=== PATIENT | female | born 1950 | race Caucasian/White ===

== ENCOUNTER 2022-12-05 09:09 | Outpatient (CLI) | payer MEDICARE, SELFPAY ==
--- NOTE | ~2022-12-05 | PE_ITS ---
EXAMINATION: PET skull to mid thigh DATE: 12/05/2022 11:30 INDICATION: Right breast cancer. TECHNIQUE: Blood glucose level was 106 mg/dL. 9.378 mCi of 18-fluorodeoxyglucose (18-FDG) was adminis tered i.v. Low dose computed tomography (CT) images were acquired from the base of the brain to the p roximal thighs for attenuation correction and anatomic localization. Automated exposure control was e mployed. Dose-length product (DLP) was 973 mGy-cm. Positron emission tomography (PET) images were acq uired in the same distribution. COMPARISON: None FINDINGS: Head/neck: There is a left parietal ventriculoperitoneal shunt. There is a 1.5 cm mass in the right p arotid gland with maximum SUV of 20.6. There is a 13 mm sialolith in the duct for right submandibular gland. There are no pathologically enlarged lymph nodes. There are changes of left posterior craniot nani. Chest: There is a 7.6 x 6.9 cm mass in the upper inner right breast with maximum SUV of 28.5. There i s no pneumonia or pleural effusion. The heart size is normal. There are coronary artery calcification s. No pericardial effusion. There are no pathologically enlarged lymph nodes. There is a calcified tr act from an old catheter in the right neck and subcutaneous right chest. Abdomen/pelvis/proximal thighs: There is diffuse hepatic steatosis. The gallbladder is absent. The sp marietta, pancreas, adrenal glands, and kidneys are normal. There is a filter in the inferior vena cava. There is a supraumbilical ventral hernia containing a wall of nonobstructed transverse colon. There i s diverticulosis of the colon without evidence of diverticulitis. There are no dilated loops of bowel . There are no pathologically enlarged lymph nodes. There is no free intraperitoneal fluid. There is no osseous malignancy. IMPRESSION: 1. Right breast mass with increased activity, consistent with primary malignancy. No specific evidenc e of metastatic disease. 2. Right parotid mass with increased activity. The differential diagnosis includes benign mixed tumor , Warthin tumor, and less likely primary malignancy or juve metastatic disease. Ultrasound-guided fi ne-needle aspiration is recommended. Reviewed, dictated and finalized at location A. IMPRESSION: 1. Right breast mass with increased activity, consistent with primary malignanc y. No specific evidence of metastatic disease. 2. Right parotid mass with increased activity. The differential diagnosis inclu rodrigo benign mixed tumor, Warthin tumor, and less likely primary malignancy or no galen metastatic disease. Ultrasound-guided fine-needle aspiration is recommended .
[2022-12-05 09:49] LABS: Glucose Point of Care 106 mg/dl (65-105)
== END 2022-12-05 09:10 | disposition home or self-care (01) ==
PROVIDERS: PCP Internal Medicine; Visit Provider Surgery
DX: C50.811 Malignant neoplasm of overlapping sites of right female breast (principal); K11.8 Other diseases of salivary glands
CPT/HCPCS: 78815; A9552

== ENCOUNTER 2024-03-10 12:25 | Inpatient (IN) | payer MEDICARE, SELFPAY ==
[2024-03-10] VITALS (23 sets, daily range): BP systolic 92–158; BP diastolic 49–145; PULSE 65–97; RESP 16–28; TEMP 36.5–36.6; O2SAT 89–98; BMI 38.5
--- NOTE | ~2024-03-10 | CT_ITS ---
CT brain wo con Ordering provider: Sherita Lino PA-C History: 74 years Female with . fall, head trauma . Comparison: None. Technique: CT of the head without contrast. Radiation reduction technique utilized. DLP is 681mGy-cm. FINDINGS: BRAIN PARENCHYMA AND CSF SPACES: Bilateral frontoparietal subdural hematoma with thickness of 4 mm on the left and 4 mm on the right. Supratentorial hematoma is also noted. Shunted tube is seen in the l eft occipital area with the tip in the area of the right foramen magnum. No midline shift, or mass ef fect.. The brain parenchyma and CSF spaces are otherwise normal. VISUALIZED PARANASAL SINUSES: Well aerated. MASTOIDS: Well aerated. BONES: Status post craniectomy in the left occipital and right frontal bone. The bones appear intact. SOFT TISSUES: Visualized nasopharynx is normal. Superficial soft tissues are normal. IMPRESSION: Bilateral frontoparietal subdural hematomas with a hematoma in the area of the tentorium. Sherita Lino PA-C was notified with the result of the patient at 10: 23 PM on March 10, 2024. Reviewed, dictated and finalized at location A. IMPRESSION: Bilateral frontoparietal subdural hematomas with a hematoma in the area of the tentorium. Sherita Lino PA-C was notified with the result of the patient at 10: 23 P M on March 10, 2024.
--- NOTE | ~2024-03-10 | CT_ITS ---
Non-contrast Head CT History: Altered mental status COMPARISON: 03/10/2024 Technique: Axial non-contrast imaging of the brain was performed. Dose reduction technique was used on this scan by utilizing automated exposure control and iterative reconstruction technique. The dose -length product (DLP) was 756.67 mGy-cm. Findings: There are small bilateral subacute subdural hematomas along the cerebral convexities, essen tially stable from prior exam.. Left ventriculostomy shunt catheter remains in place. Brain parenchym a appears normal. The ventricles and subarachnoid spaces are normal in size. Prior left occipital cr aniectomy.. The visualized paranasal sinuses and mastoid air cells are clear. Impression: Small bilateral cerebral convexity subacute subdural hematomas are stable from prior exam. Prior occipital craniectomy and ventriculostomy shunt catheter. Reviewed, dictated and finalized at [facility]. Impression: Small bilateral cerebral convexity subacute subdural hematomas are stable from prior exam. Prior occipital craniectomy and ventriculostomy shunt catheter.
--- NOTE | ~2024-03-10 | XR_ITS ---
XR chest 1V portable Ordering provider: Jackson Vázquez MD History: 74 years Female with . SOA . Comparison: None. FINDINGS: MEDIASTINUM: The cardiac silhouette is not enlarged. Congestive jane. LUNGS: No pneumothorax. Opacification the left lung bases suggestive of atelectasis versus pneumonia with possible pleural effusion. Minimal atelectasis versus pneumonia in the right lung base is also n oted. OTHER: No free air under the diaphragm. Right central line is projected with the tip overlying superior vena cava. Wires are projected over t he chest and abdomen. Unusual catheter Is projected over the chest and abdomen in the mid area clinical correlation advised. IMPRESSION: Pneumonia in the left lung base with possible effusion. Minimal pneumonia in the right lung base. Reviewed, dictated and finalized at location A.
--- NOTE | ~2024-03-10 | CT_ITS ---
CTA chest PE protocol Ordering provider: Jackson Vázquez MD History: 74 years Female with . SOA . Comparison: None. Technique: CT angiogram chest was performed following timed intravenous injection of contrast. Thin s lice axial images and reformatted coronal images were obtained. Three dimensional reformatted images of the chest were also obtained using a [employer] workstation. . Automated exposure control and iterati ve reconstruction technique were employed. The dose-length product was 822.03 mGy-cm. 100 MLO Omnipaq ue 350 was given IV. Findings: PULMONARY ARTERIES: No pulmonary embolus. VISUALIZED THORACIC INLET: Normal. MEDIASTINUM: Aorta/coronary arteries: Mild atheromatous disease. Heart/other: The heart is mildly enlarged. Lymph nodes: No mediastinal or hilar adenopathy. Narrowing of the trachea and main bronchi suggestive of tracheomalacia and bronchomalacia. Calcified vessel is seen in the anterior chest wall are may be a catheter clinical correlation advise d. LUNGS: Dependent atelectatic changes. Atelectasis in the middle lobe and lingula. No pulmonary nodules or ma sses. No infiltrates or effusions. No pneumothorax. VISUALIZED UPPER ABDOMEN: Slightly prominent pancreatic duct. Slight narrowing at the origin of the c eliac artery. Otherwise, the visualized upper abdomen is normal. MUSCULOSKELETAL: Soft tissues: The superficial soft tissues are normal. Bones: Age appropriate degenerative changes of the spine. IMPRESSION: 1. No pulmonary embolism. 2. Tracheobronchial malacia. 3. Dependent atelectatic changes with atelectasis in the middle lobe and lingula. 4. Cardiomegaly. 5. Slightly prominent pancreatic duct. Follow-up advised. Reviewed, dictated and finalized at location A. IMPRESSION: 1. No pulmonary embolism. 2. Tracheobronchial malacia. 3. Dependent atelectatic changes with atelectasis in the middle lobe and lingu la. 4. Cardiomegaly. 5. Slightly prominent pancreatic duct. Follow-up advised.
--- NOTE | ~2024-03-10 | US_ITS ---
BILATERAL LOWER EXTREMITY VENOUS ULTRASOUND Ordering provider: Sherita Lino History: . Bilateral lower extremity edema, left greater than . Comparison: None. FINDINGS: RIGHT LOWER EXTREMITY VEINS: --COMMON FEMORAL: Patent and free of thrombus. Normal compressibility, phasic flow and augmentation. --PROXIMAL SUPERFICIAL FEMORAL: Patent and free of thrombus. Normal compressibility, phasic flow and augmentation. --DISTAL SUPERFICIAL FEMORAL: Patent and free of thrombus. Normal compressibility, phasic flow and au gmentation. --POPLITEAL: Patent and free of thrombus. Normal compressibility, phasic flow and augmentation. --POSTERIOR TIBIAL: Not evaluated. LEFT LOWER EXTREMITY VEINS: --COMMON FEMORAL: Patent and free of thrombus. Normal compressibility, phasic flow and augmentation. --PROXIMAL SUPERFICIAL FEMORAL: Patent and free of thrombus. Normal compressibility, phasic flow and augmentation. --DISTAL SUPERFICIAL FEMORAL: Patent and free of thrombus. Normal compressibility, phasic flow and au gmentation. --POPLITEAL: Patent and free of thrombus. Normal compressibility, phasic flow and augmentation. --POSTERIOR TIBIAL: Patent and free of thrombus. Normal compressibility, phasic flow and augmentation . IMPRESSION: The right calf veins are not visualized otherwise, Negative bilateral lower extremity venous US. No d eep vein thrombosis. Reviewed, dictated and finalized at location A. IMPRESSION: The right calf veins are not visualized otherwise, Negative bilateral lower ext remity venous US. No deep vein thrombosis.
--- NOTE | 2024-03-10 12:47 | ECG_ITS ---
Test Date: 2024-03-10 12:49:06 Measurements Intervals [place] Rate: 87 P: 39 [place]: 152 QRS: 26 QRSD: 125 T: 87 QT: 389 QTc: 470 Interpretive Statements SINUS RHYTHM RIGHT BUNDLE BRANCH BLOCK MINIMAL Q WAVES- INFERIOR LEADS ST-T WAVE ABNORMALITY IN ANTEROLATERAL LEADS- CONSIDER ISCHEMIA BASELINE ARTIFACT- I, II, III, AVR, AVF, V1 ABNORMAL ECG No previous ECG available for comparison Electronically Signed On 03-10-2024 17:12:45 CDT by Wes Carter D.O.
[2024-03-10 13:10] LABS: Basophils Absolute Auto 0.1 K/mm3 (0.0-0.1); Basophils Percent Auto 0.7 % (0.2-1.2); Eosinophils Absolute Auto 0.1 K/mm3 (0-0.3); Eosinophils Percent Auto 1.9 % (0-4.4); Hematocrit 54.3 % (37.0-47.0); Immature Granulocyte Absolute 0.01 K/mm3 (0.00-0.031); Immature Granulocyte Percent A 0.1 % (0-0.5); Lymphocytes Absolute Auto 1.59 K/mm3 (0.9-3.2); Lymphocytes Percent Auto 22.8 % (18.3-44.2); Mean Corpuscular HGB Conc 31.3 g/dl (32-36); Mean Corpuscular Hemoglobin 33.6 pg (26-34); Mean Corpuscular Volume 107.3 fl (80-100); Mean Platelet Volume 10.8 fl (7.4-10.4); Monocytes Absolute Auto 0.8 K/mm3 (0.1-0.6); Monocytes Percent Auto 11.8 % (2.6-8.5); Neutrophils Absolute Auto 4.4 K/mm3 (1.3-6.7); Neutrophils Percent Auto 62.7 % (45.5-73.1); Platelet Count Result 193 k/mm3 (150-375); Red Blood Count 5.06 M/mm3 (4.2-5.4); Red Cell Distribution Width 14.7 % (11.5-14.5)
[2024-03-10 13:24] LABS: Alveolar/Arterial O2 Gradient 111.4 mmHg; Base Excess ABG 6.1 mEq/l (+/-2.0); Carboxyhemoglobin 1.4 % THb (0-2.0); Fractional Inspired Oxygen 36 %; HCO3 ABG 36.3 mEq/l (22.0-26.0); Methemoglobin ABG 0.2 %THb (0-1.5); Oxygen Content ABG 20.3 %vol (16.0-22.0); PO2 ABG 56.4 mmHg (80.0-100.0); PO2 FiO2 Ratio Arterial Blood 1.57 %; Reduced Hemoglobin 13.6 %THb (0-5.0); Total Hemoglobin 17.1 g/dL (12.0-18.0)
[2024-03-10 13:29] LABS: PCO2 ABG 76.6 mmHg (35.0-45.0); pH ABG 7.293 (7.350-7.450)
[2024-03-10 13:30] LABS: Oxygen Saturation ABG 84.8 % (95.0-100.0)
[2024-03-10 13:31] LABS: Device NASAL CANNULA; Oxyhemoglobin 84.8 % THb (90.0-100.0); Site Drawn RIGHT RADIAL
[2024-03-10 13:43] LABS: Anisocytosis 1+; Macrocytosis 1+ (NORMAL); Platelet Estimate Adequate (Adequate); Schistocytes None Seen
[2024-03-10 13:53] LABS: Alanine Aminotransferase 34 U/L (6-35); Albumin Level 4.1 g/dL (3.5-5.1); Alkaline Phosphatase 67 U/L (38-126); Anion Gap 6 mmol/L (4-12); Aspartate Amino Transferase 38 U/L (14-36); Bilirubin,Total 0.9 mg/dL (0.2-1.3); Blood Urea Nitrogen 13 mg/dL (7-17); Calcium 9.2 mg/dL (8.4-10.2); Carbon Dioxide 38 mmol/L (22-30); Chloride 99 mmol/L (98-107); Estimated CRCL calculation 60 ml/min; Estimated Glomerular Filt Rate > 60; Glucose 103 mg/dL (65-110); Potassium 3.9 mmol/L (3.4-5.0); Sodium 143 mmol/L (137-145)
[2024-03-10 14:41] LABS: NT Pro B Type Natriuretic Pept 968 pg/mL (19.9-100)
--- NOTE | 2024-03-10 15:07 | PC.NURSE ---
Patient repositioned in bed and warm blanket given
[2024-03-10 15:42] LABS: Alveolar/Arterial O2 Gradient 164.1 mmHg; Base Excess ABG 5.2 mEq/l (+/-2.0); Carboxyhemoglobin 1.5 % THb (0-2.0); Fractional Inspired Oxygen 40 %; Methemoglobin ABG 0.3 %THb (0-1.5); Oxygen Content ABG 19.4 %vol (16.0-22.0); PO2 ABG 51.1 mmHg (80.0-100.0); PO2 FiO2 Ratio Arterial Blood 1.28 %; Reduced Hemoglobin 14.5 %THb (0-5.0); Total Hemoglobin 16.5 g/dL (12.0-18.0); pH ABG 7.352 (7.350-7.450)
[2024-03-10 15:47] LABS: Oxygen Saturation ABG 83.6 % (95.0-100.0); PCO2 ABG 60.9 mmHg (35.0-45.0)
[2024-03-10 15:48] LABS: Device BIPAP; Oxyhemoglobin 83.7 % THb (90.0-100.0); Site Drawn LEFT RADIAL
[2024-03-10 15:56] LABS: Expiratory Pressure 8 cmH2O; Inspiratory Pressure 16 cmH2O
[2024-03-10] MEDS: ALBUTEROL SULFATE NEB 2.5 MG/3 ML INH 10 MG INHALATION (15:57)
[2024-03-10] MEDS: IPRATROPIUM BR 0.02% INH SOLN 0.5 MG/2.5 ML VIAL 1 MG INHALATION (15:57)
--- NOTE | 2024-03-10 16:09 | ED.SOB ---
HPI - SOB/Dyspnea General Chief Complaint: Shortness of Breath/Dyspnea Stated Complaint: Fall Time Seen by Provider: 03/10/24 12:54 History of Present Illness HPI Narrative: Patient is a 74-year-old female who presents ER for evaluation for left starkey because she tripped over her dog while using a walker yesterday and developed a bruise. Upon arrival she is found to be satting 74% on room air. She was taken to her room placed on non-rebreather. Patient is awake alert and oriented x2. She cannot give me any additional history of her illness. Denies any fevers or chills or cough. She has no chest pain. She does have bruising to the left starkey. She has no ever other evidence of injury to her body. Denies head injury. Related Data Allergies Allergy/AdvReac Type Severity Reaction Status Date / Time No Known Allergies Allergy Verified 03/10/24 16:10 Review of Systems Review of Systems: All systems reviewed & are unremarkable except as noted in HPI and below Constitutional: Constitutional: Reports no additional constitutional complaints ENT: Reports system reviewed and no additional complaints, except as documented Cardiovascular: Cardiovascular: Reports no additional cardiovascular complaints Respiratory: Respiratory: Reports no additional respiratory complaints Genitourinary: Genitourinary: Reports no additional female genitourinary complaints [facility] Past Medical History Medical History (Updated 03/10/24 @ 17:31 by Jackson Vázquez MD) Hyperlipidemia Hypothyroidism Exam Narrative: GENERAL: Chronically ill-appearing, obese, and in no acute distress. HEAD: Normocephalic, atraumatic. EYES: PERRL and EOMI. ENT: Mucous membranes moist. CHEST: Clear to auscultation. No respiratory distress. HEART: Regular rate and rhythm. Normal peripheral pulses. ABDOMEN: Soft, nontender, nondistended. EXTREMITIES: Normal range of motion. +2 edema. SKIN: Warm, dry, no rash. NEURO: Alert and oriented x2. Course Course Emergency Course: Patient hypercapnic and placed on BiPAP. Broad-spectrum antibiotics for pneumonia. Accepted by hospitalist service. They requested a cta of the chest. Vital Signs Vital signs: Vital Signs Temperature 97.7 F 03/10/24 12:45 Pulse Rate 82 03/10/24 12:45 Respiratory Rate 18 03/10/24 12:45 Blood Pressure 146/90 H 03/10/24 12:45 Pulse Oximetry 98 03/10/24 12:45 Oxygen Delivery Non-Rebreather Mask 03/10/24 12:45 Oxygen Flow Rate 13 03/10/24 12:45 Temperature 97.7 F 03/10/24 12:45 Pulse Rate 66 03/10/24 16:01 Respiratory Rate 24 H 03/10/24 16:01 Blood Pressure 107/53 L 03/10/24 16:01 Pulse Oximetry 94 03/10/24 16:01 Oxygen Delivery BiPAP 03/10/24 13:40 Oxygen Flow Rate 4 03/10/24 12:59 MDM - SOB/Dyspnea Lab Data 03/10/24 12:55 03/10/24 13:37 Labs: Lab Results 03/10/24 03/10/24 03/10/24 Range/Units 12:55 13:19 13:36 WBC 7.0 (4.5-10.0) K/mm3 RBC 5.06 (4.2-5.4) M/mm3 Hgb 17.0 H (12.0-15.0) g/dL Hct 54.3 H (37.0-47.0) % MCV 107.3 H (80-100) fl MCH 33.6 (26-34) pg MCHC 31.3 L (32-36) g/dl RDW 14.7 H (11.5-14.5) % Plt Count 193 (150-375) k/mm3 MPV 10.8 H (7.4-10.4) fl Immature Gran % (Auto) 0.1 (0-0.5) % Neut % (Auto) 62.7 (45.5-73.1) % Lymph % (Auto) 22.8 (18.3-44.2) % [place] % (Auto) 11.8 H (2.6-8.5) % Eos % (Auto) 1.9 (0-4.4) % Baso % (Auto) 0.7 (0.2-1.2) % Lymph # (Auto) 1.59 (0.9-3.2) K/mm3 [place] # (Auto) 0.8 H (0.1-0.6) K/mm3 Eos # (Auto) 0.1 (0-0.3) K/mm3 Baso # (Auto) 0.1 (0.0-0.1) K/mm3 Abs Immat Gran (auto) 0.01 (0.00-0.031) K/mm3 Absolute Neuts (auto) 4.4 (1.3-6.7) K/mm3 Absolute Nucleated RBC 0.000 (0.0-0.012) K/mm3 Nucleated RBC % 0.0 (0.0-0.2) % Platelet Estimate Adequate (Adequate) Anisocytosis 1+ Macrocytosis 1+ (NORMAL) Schistocytes None seen
--- NOTE | 2024-03-10 16:50 | PC.NURSE ---
Phlebotomy was called at 1648 for second set of blood cultures and lactic blood draw.
--- NOTE | 2024-03-10 17:04 | PC.NURSE ---
Waiting on phlebotomy to come draw second set of blood cultures
--- NOTE | 2024-03-10 17:13 | PC.NURSE ---
Sherita at bedside
--- NOTE | 2024-03-10 18:17 | ADMGEN ---
This patient, Sarah Lazaro, was admitted to IMU Room 211-01. Patient/family oriented to hospital policies and general routines including ID bracelet, bed and alarms, visiting hours, pain management, procedures, bathroom and other care routines, personal items, smoking policy, room service/diet, and visiting hours. Information on how to activate the Rapid Response Team has been discussed. Patient/Family are encouraged to report perceived risks to care and to ask questions if they do not understand what they are told or what they should do.
[2024-03-10 18:25] LABS: Lactic Acid Reflex 0.9 mmol/L (0.7-2.0)
--- NOTE | 2024-03-10 20:39 | PC.NURSE ---
Call placed to Sherita ABDUL regarding pt's LOC. Pt unable to answer orientation questions/follow commands. Pt is drowsy and sleeping. New orders pending per Sherita ABDUL.
--- NOTE | 2024-03-10 20:44 | PC.NURSE ---
Sherita ABDUL with new orders for STAT brain CT and ABGC.
--- NOTE | 2024-03-10 20:44 | PM.IMHP ---
H&P: HPI History of Present Illness Date/Time: 03/10/24 20:45 Chief Complaint: Fall, cough, shortness of breath. Narrative: This is a 74-year-old female with history of right-sided breast cancer, hypothyroidism, hypercholesterolemia, depression, and traumatic brain injury with cognitive impairment who presented to the emergency department via private vehicle accompanied by her [id number] for evaluation of a fall, cough, and shortness of breath. The patient is currently on BiPAP and has difficulty speaking through the mask and thus some of the following history is provided by her [id number], Angeli Hair, who is at bedside, with the patient's permission. The patient lives with her who is her primary pipeline inspector but he was in the hospital several days over the weekend and Angeli Hair came to stay with the patient. The house is filthy, without a working toilet, and is likely not livable and Angeli Hair took her to a local motel to stay. The patient has a good appetite and seemed to have been doing well these past couple of days. Yesterday however she developed a cough and seemed to be short of breath. This morning she fell out of bed and hit her head on the ground but was able to get up with the help of Angeli Hair. Angeli Hair felt she should bring the patient for evaluation given the fall, cough, and shortness of breath. There was no loss of consciousness in the fall and the patient denies sustaining any injuries. She has no complaints at the time my evaluation and denies fever, chills, sweats, headache, sinus congestion, sore throat, vision changes, focal weakness, paresthesias, chest pain, hemoptysis, vomiting, diarrhea, dysuria, and calf pain. In the ED: SpO2 was in the 70s on room air on arrival to triage. She was afebrile with stable blood pressures. ABG showed a pH of 7.293, pCO2 76.6, PO2 56.4 with a reduced hemoglobin of 13 0.6%, and bicarb of 36.3. Labs were significant for WBC count of 7.0, hemoglobin 17.0, hematocrit 54.3%, MCV 107.3, platelet 193, carbon dioxide 38, proBNP 968. Chest x-ray showed cardiomegaly, pneumonia in the left lung base with possible effusion, and minimal pneumonia in the right lung base. Chest CTA was negative for pulmonary embolism but showed cardiomegaly, tracheobronchial malacia, and dependent atelectatic changes with atelectasis in the middle lobe and lingula. EKG showed a sinus rhythm with right bundle-branch block and ST T-wave deviation in the anterolateral leads. She received and albuterol nebulizer and was started on antibiotics for possible pneumonia and she is being admitted in this setting for further treatment. Review of Systems Review of Systems: Review of systems was limited due to the BiPAP mask. She also has cognitive impairment from previous TBI and [id number] states that she has some memory loss and is quite repetitive. [id number] also mentions that the patient was quite dirty when she picked her up and gave her a good shower at which time she noticed significant rashes under the patient's breasts and inguinal creases consistent with yeast. She also notes that the patient's toenails were long and curved into her skin. She has urinary incontinence at baseline. Patient ambulates with a walker. She has had occasional falls. No syncope. [facility] Past Medical History Medical History (Updated 03/10/24 @ 21:05 by Sherita Lino PA-C) Cancer of right breast Hyperlipidemia Hypothyroidism Mild cognitive impairment Traumatic brain injury Surgical History Surgical History (Updated 03/10/24 @ 22:30 by Sherita Lino PA-C) History of craniotomy History of right mastectomy Family History Family History (Updated 03/10/24 @ 20:57 by Sherita Lino PA-C) Other Family history unknown Social History Social History (Updated 03/10/24 @ 20:58 by Sherita Lino PA-C) Social History: Surrogate medical decision maker: Guilherme Lazaro, spouse. Code status: Full code. Smoking status: [place]
[2024-03-10 21:12] LABS: Alveolar/Arterial O2 Gradient 201.5 mmHg; Base Excess ABG 4.8 mEq/l (+/-2.0); Carboxyhemoglobin 1.6 % THb (0-2.0); Fractional Inspired Oxygen 50 %; HCO3 ABG 33.3 mEq/l (22.0-26.0); Oxygen Content ABG 20.6 %vol (16.0-22.0); Oxygen Saturation ABG 94.7 % (95.0-100.0); Oxyhemoglobin 93.9 % THb (90.0-100.0); PO2 ABG 80.9 mmHg (80.0-100.0); PO2 FiO2 Ratio Arterial Blood 1.62 %; Reduced Hemoglobin 4.5 %THb (0-5.0); Total Hemoglobin 15.6 g/dL (12.0-18.0); pH ABG 7.321 (7.350-7.450)
[2024-03-10 21:14] LABS: Device NON-INVASIVE VENT; Modified Allen's Test Pass; PCO2 ABG 65.9 mmHg (35.0-45.0); Site Drawn LEFT RADIAL
[2024-03-10 21:15] LABS: Non-Invasive Expiratory Pressure 8 CMH2O; Non-Invasive Inspiratory Pressure 16 CMH2O; Non-Invasive Vent Rate 24 /MIN
[2024-03-10] MEDS: TOLNAFTATE 1% POWDER 45 GM BTL 1 APPLIC TOPICAL (22:00)
[2024-03-10] MEDS: ACETAMINOPHEN 325 MG TABLET 650 MG PO (22:41)
[2024-03-10] MEDS: AZITHROMYCIN 500 MG/NS 250 ML 500 MG/250 ML BAG 250 MG IVPB (23:54)
[2024-03-11] VITALS (19 sets, daily range): BP systolic 110–119; BP diastolic 45–69; PULSE 55–74; RESP 16–28; TEMP 36.4–36.6; O2SAT 92–96
[2024-03-11 04:57] LABS: Hematocrit 53.7 % (37.0-47.0); Hemoglobin 16.4 g/dL (12.0-15.0); Mean Corpuscular HGB Conc 30.5 g/dl (32-36); Mean Corpuscular Hemoglobin 33.5 pg (26-34); Mean Corpuscular Volume 109.6 fl (80-100); Platelet Count Result 161 k/mm3 (150-375); Red Cell Distribution Width 14.6 % (11.5-14.5); White Blood Count 4.8 K/mm3 (4.5-10.0)
[2024-03-11 05:25] LABS: Alveolar/Arterial O2 Gradient 183.4 mmHg; Base Excess ABG 3.1 mEq/l (+/-2.0); Carboxyhemoglobin 1.2 % THb (0-2.0); Fractional Inspired Oxygen 50 %; HCO3 ABG 32.3 mEq/l (22.0-26.0); Methemoglobin ABG 0.1 %THb (0-1.5); Oxygen Content ABG 21.4 %vol (16.0-22.0); Oxygen Saturation ABG 96.1 % (95.0-100.0); Oxyhemoglobin 95.4 % THb (90.0-100.0); PO2 ABG 94.2 mmHg (80.0-100.0); PO2 FiO2 Ratio Arterial Blood 1.88 %; Reduced Hemoglobin 3.3 %THb (0-5.0); Total Hemoglobin 15.9 g/dL (12.0-18.0)
[2024-03-11 05:29] LABS: pH ABG 7.282 (7.350-7.450)
[2024-03-11 05:30] LABS: Device NON-INVASIVE VENT; Modified Allen's Test Pass; PCO2 ABG 70.1 mmHg (35.0-45.0); Site Drawn RIGHT RADIAL
[2024-03-11 05:31] LABS: Non-Invasive Expiratory Pressure 8 CMH2O; Non-Invasive Inspiratory Pressure 16 CMH2O; Non-Invasive Vent Rate 24 /MIN
[2024-03-11 05:38] LABS: Anion Gap 6 mmol/L (4-12); Blood Urea Nitrogen 13 mg/dL (7-17); Calcium 8.7 mg/dL (8.4-10.2); Carbon Dioxide 37 mmol/L (22-30); Chloride 99 mmol/L (98-107); Estimated CRCL calculation 60 ml/min; Estimated Glomerular Filt Rate > 60; Glucose 90 mg/dL (65-110); Magnesium 2.1 mg/dL (1.6-2.3); Potassium 4.1 mmol/L (3.4-5.0); Sodium 142 mmol/L (137-145)
[2024-03-11] MEDS: LEVOTHYROXINE SODIUM 100 MCG TABLET PO (06:16)
[2024-03-11] MEDS: IPRATROPIUM 0.5 MG/ALBUTEROL SULFATE 2.5 MG AMPUL.NEB 3 ML INHALATION (07:21)
--- NOTE | 2024-03-11 08:00 | PC.NURSE ---
Pt's CO2 increasing on ABG's throughout the night, RN informed in report that pt is in and out of alertness/awareness. Pt has increasing subdermal hematoma per head CTs. RN & RT don't feel comfortable making changes to pt's BiPAP with active brain bleed, not wanting to increase pressure at this time, afraid of increasing ICP. RN to ICU to discuss pt's case with Bottle Booth Attendant. Dr. Moran to pt bedside with RN, RT, digital sales manager. Adjustments made to BiPAP by Dr. Moran. New orders to give 1-hr breathing treatment and to recheck ABG in one hour. Notify Bottle Booth Attendant of repeat ABG and/or if any changes in neuro status. MICHELE Ramirez informed of situation. TREASURY DIRECTOR arrived at bedside while Bottle Booth Attendant is in the room, updated on situation.
[2024-03-11] MEDS: ALBUTEROL SULFATE NEB 2.5 MG/3 ML INH 10 MG INHALATION (08:07)
--- NOTE | 2024-03-11 08:54 | PC.NURSE ---
MICHELE Ramirez updated RN that [facility] doesn't have any beds at this time. BOARDING HOUSE COOK will make calls to other hospitals such as [facility] and [facility] to see if they can accept.
[2024-03-11 09:12] LABS: Alveolar/Arterial O2 Gradient 206.6 mmHg; Base Excess ABG 4.2 mEq/l (+/-2.0); Carboxyhemoglobin 1.2 % THb (0-2.0); Fractional Inspired Oxygen 50 %; HCO3 ABG 33.8 mEq/l (22.0-26.0); Methemoglobin ABG 0.1 %THb (0-1.5); Oxygen Saturation ABG 90.6 % (95.0-100.0); Oxyhemoglobin 90.5 % THb (90.0-100.0); PO2 ABG 67.8 mmHg (80.0-100.0); PO2 FiO2 Ratio Arterial Blood 1.36 %; Reduced Hemoglobin 8.2 %THb (0-5.0); Total Hemoglobin 16.5 g/dL (12.0-18.0)
[2024-03-11 09:18] LABS: pH ABG 7.284 (7.350-7.450)
[2024-03-11 09:19] LABS: Device NON-INVASIVE VENT; Non-Invasive Expiratory Pressure 8 CMH2O; Non-Invasive Inspiratory Pressure 20 CMH2O; Non-Invasive Vent Rate 16 /MIN; Site Drawn RIGHT BRACHIAL
--- NOTE | 2024-03-11 09:28 | PC.NURSE ---
Updated MICHELE Ramirez on critical ABG results. RN requested straight cath to obtain drug screen that was ordered, received new order for tijerina catheter.
--- NOTE | 2024-03-11 09:30 | PM.IMPN ---
Progress Note: A&P Assessment and Plan (1) Acute respiratory failure with hypoxia and hypercapnia: Code(s): J96.01 - Acute respiratory failure with hypoxia; J96.02 - Acute respiratory failure with hypercapnia Status: Acute (2) Tracheobronchomalacia: Code(s): J39.8 - Other specified diseases of upper respiratory tract Status: Acute (3) Cardiomegaly: Code(s): I51.7 - Cardiomegaly Status: Acute (4) Polycythemia: Code(s): D75.1 - Secondary polycythemia Status: Acute (5) Fall from bed: Code(s): W06.XXXA - Fall from bed, initial encounter Status: Acute (6) Mild cognitive impairment: Code(s): G31.84 - Mild cognitive impairment of uncertain or unknown etiology Status: Acute (7) Hypothyroidism: Code(s): E03.9 - Hypothyroidism, unspecified Status: Acute (8) History of right breast cancer: Code(s): Z85.3 - Personal history of malignant neoplasm of breast Status: Acute Plan The patient presented to the emergency department accompanied by her [id number] for evaluation after a fall, cough, and shortness of breath as detailed in HPI. Labs, imaging, EKG, and all reports were personally reviewed. The patient was hypoxic on arrival to triage an ABG showed acute respiratory acidosis and hypoxia for which she was started on BiPAP. Repeat ABG improved significantly. CT scan was negative for PE, edema, and pneumonia but did show tracheobronchomalacia. Continue BiPAP and bronchodilators. Add Cornet and incentive spirometry. She has polycythemia which may be secondary to chronic hypoxia. She will need a home oxygen study prior to discharge and should probably have a formal outpatient polysomnogram as she may very well have underlying sleep apnea and/or obesity hypoventilation syndrome. Pulmonology consulted for their opinion. Echocardiogram ordered for evaluation of cardiomegaly. Brain CT ordered as she did hit her head when she fell out of bed. Continue levothyroxine and check TSH. She is on letrozole for history of breast cancer which will be continued. Care coordination consulted as the patient's living situation is concerning (house is reportedly filthy with non working toilet). Her home medications will be reviewed and resumed as appropriate. Findings and treatment plan were discussed with the patient and her [id number]-sk-ewz Angeli Hair, with the patient's permission. Questions were solicited and answered to satisfaction. The patient's medical management will be taken over by the hospitalist team in a.m. Subjective Date/time seen: 03/11/24 09:30 Interval history: Narrative- retrieved from H/P: This is a 74-year-old female with history of right-sided breast cancer, hypothyroidism, hypercholesterolemia, depression, and traumatic brain injury with cognitive impairment who presented to the emergency department via private vehicle accompanied by her [id number]-mtf for evaluation of a fall, cough, and shortness of breath. The patient is currently on BiPAP and has difficulty speaking through the mask and thus some of the following history is provided by her jqiuii-hm-atm, Angeli Hair, who is at bedside, with the patient's permission. The patient lives with her who is her primary canvass manager but he was in the hospital several days over the weekend and Angeli Hair came to stay with the patient. The house is filthy, without a working toilet, and is likely not livable and Angeli Hair took her to a local motel to stay. The patient has a good appetite and seemed to have been doing well these past couple of days. Yesterday however she developed a cough and seemed to be short of breath. This morning she fell out of bed and hit her head on the ground but was able to get up with the help of Angeli Hair. Angeli Hair felt she should bring the patient for evaluation given the fall, cough, and shortness of breath. There was no loss of consciousness in the fall and the patient denies sustaining any
[2024-03-11] MEDS: TOLNAFTATE 1% POWDER 45 GM BTL 1 APPLIC TOPICAL (09:47)
[2024-03-11] MEDS: methylPREDNISolone SOD SUCC 125 MG VIAL IV PUSH (09:47)
[2024-03-11] MEDS: methylPREDNISolone SOD SUCC 125 MG VIAL (09:50)
--- NOTE | 2024-03-11 09:51 | PM.TDS ---
Transfer Discharge Sum: Prov Provider Date of admission: 03/10/24 18:05 Primary care physician: Paddy Rapp, MD Admitting clinician: Diana Oro MD Consults: 03/10/24 Care Coordination Consult Routine Reason for Consult:: Other Consult to Physician Routine Comment: spoke with Dr. Call @[phone](,) Consulting Provider: Falguni Call square dance caller/MD group to consult: pulmonolgy Reason for consultation: Hypoxia/hypercarbia, tracheobronchial malacia Has provider been notified: Yes Attending physician on discharge: Isela Hannah DS: Admitting Diagnosis Discharge Date 03/11 Admitting Diagnosis fall DS: Discharge Diagnosis Discharge Diagnosis (1) Acute respiratory failure with hypoxia and hypercapnia: Code(s): J96.01 - Acute respiratory failure with hypoxia; J96.02 - Acute respiratory failure with hypercapnia Status: Acute (2) Tracheobronchomalacia: Code(s): J39.8 - Other specified diseases of upper respiratory tract Status: Acute (3) Cardiomegaly: Code(s): I51.7 - Cardiomegaly Status: Acute (4) Polycythemia: Code(s): D75.1 - Secondary polycythemia Status: Acute (5) Fall from bed: Code(s): W06.XXXA - Fall from bed, initial encounter Status: Acute (6) Mild cognitive impairment: Code(s): G31.84 - Mild cognitive impairment of uncertain or unknown etiology Status: Acute (7) Hypothyroidism: Code(s): E03.9 - Hypothyroidism, unspecified Status: Acute (8) History of right breast cancer: Code(s): Z85.3 - Personal history of malignant neoplasm of breast Status: Acute Plan Final dx: Bilateral frontoparietal subdural hematomas with a hematoma in the area of the tentorium. head CT: BRAIN PARENCHYMA AND CSF SPACES: Bilateral frontoparietal subdural hematoma with thickness of 4 mm on the left and 4 mm on the right. Supratentorial hematoma is also noted. Shunted tube is seen in the left occipital area with the tip in the area of the right foramen magnum. No midline shift, or mass effect.. The brain parenchyma and CSF spaces are otherwise normal. Respiratory failure - BiPap. R16, 20/8, FiO2 50% abg: ph 7.28, co2 73, hco- 33.8, o2 67.8- spoke with fire hydrant mechanic- DR Spencer- no need for intubation at this point- ok to transfer on Bipap. Transfer Discharge Sum: Med Medications Active and Home Medications: Home Medications letrozole 2.5 mg tablet 2.5 mg PO DAILY 03/10/24 [History Confirmed 03/10/24] levothyroxine 100 mcg tablet 100 mcg PO DAILY 03/10/24 [History Confirmed 03/10/24] Active Medications Acetaminophen (Acetaminophen 325 Mg Tablet) 650 mg PO Q6H PRN PRN Reason: Mild Pain (1-3) or Fever Last Admin: 03/10/24 22:41 Dose: 650 mg Hydrocodone Bitart/Acetaminophen (Hydrocodone/Acetaminophen (*Crx) 5-325 Mg Tablet) 1 tab PO Q4H PRN PRN Reason: Pain Rated 4-6 Albuterol/Ipratropium (Ipratropium 0.5 Mg/Albuterol Sulfate 2.5 Mg Ampul.Neb 3 Ml) 3 ml INHALATION Q6HRT [facility] Last Admin: 03/11/24 07:21 Dose: 3 ml Guaifenesin (Guaifenesin 12 Hr 600 Mg Tabcr) 1,200 mg PO Q12HR [facility] Last Admin: 03/11/24 09:47 Dose: Not Given Azithromycin (Zithromax) 500 mg in 250 mls @ 250 mls/hr IVPB Q24H [facility] Ceftriaxone Sodium (Rocephin 1 Gm/Ns 50 Ml) 1 gm in 50 mls @ 100 mls/hr IVPB Q24H [facility] Letrozole (Letrozole (*Chemo) 2.5 Mg Tablet) 2.5 mg PO DAILY [facility] Last Admin: 03/11/24 09:47 Dose: Not Given Levothyroxine Sodium (Levothyroxine Sodium 100 Mcg Tablet) 100 mcg PO DAILY@0630 [facility] Last Admin: 03/11/24 06:16 Dose: 100 mcg Ondansetron HCl (Ondansetron Inj 4 Mg/2 Ml Vial) 4 mg IV PUSH Q4H PRN PRN Reason: Nausea Perflutren Lipid Microsphere (Perflutren Lipid Microspheres 1.5 Ml Vial Diluted To 10 Ml Total Volume) 0 ml IV PUSH ONCE PRN; Protocol PRN Reason: adequate visualization Stop: 03/13/24 21:24 Tolnaftate (Tolnaftate 1% Powder 45 Gm Btl) 1 applic TOPICAL Q12HR [facility] Last Admin:
[2024-03-11 10:27] LABS: Barbiturate Screen Urine Negative (Negative); Benzodiazepines Screen Urine Negative (Negative)
[2024-03-11 10:30] LABS: Amphetamine Screen Urine Negative (Negative); Cannabinoid Screen Urine Negative (Negative); Cocaine Screen Urine Negative (Negative); Methadone Screen Urine Negative (Negative); Opiate Screen Urine Negative (Negative); Phencyclidine Screen Urine Negative (Negative)
--- NOTE | 2024-03-11 12:48 | PC.NURSE ---
Pt transferred to [facility] via [facility] to room 315. Guilherme, notified of transfer. Belongings sent with patient.
== END 2024-03-11 12:48 | disposition short-term general hospital (02) | DRG 193 ==
LOC: ANHED 13:41 → ANHIMU 17:18
PROVIDERS: Internal Medicine; Physician Assistant; Admitting Provider General Practice; Emergency Provider Emergency Medicine; PCP Internal Medicine; Visit Provider Nurse Practitioner
DX: J18.9 Pneumonia, unspecified organism (principal); J96.01 Acute respiratory failure with hypoxia; S06.5X0A Traumatic subdural hemorrhage without loss of consciousness, initial encounter; J96.02 Acute respiratory failure with hypercapnia; W06.XXXA Fall from bed, initial encounter; D75.1 Secondary polycythemia; E03.9 Hypothyroidism, unspecified; E78.00 Pure hypercholesterolemia, unspecified; F32.A Depression, unspecified; I51.7 Cardiomegaly; J39.8 Other specified diseases of upper respiratory tract; Z85.3 Personal history of malignant neoplasm of breast; Z87.820 Personal history of traumatic brain injury
CPT/HCPCS: 36415; 36600; 70450; 71045; 71275; 80048; 80053; 80307; 82375; 82805; 83050; 83605; 83735; 83880; 84443; 85025; 85027; 87040; 93005; 93970; 94002; 94003; 94640; 99285; A9270; G0378; J0456; J0696; J2919; Q9967